=== PATIENT | female | born 1940 | race Caucasian/White ===

== ENCOUNTER 2021-11-28 10:05 | Emergency (ER) | payer MEDICARE ==
[~2021-11-28] VITALS: Ht 160 cm; Wt 61.0 kg
[2021-11-28] MEDS ORDERED: fentaNYL INJ 100 MCG/2 ML AMP IVP STA ×2 (10:13→11:28)
[2021-11-28 10:24] LABS: BASOPHILS # (AUTO) 0.1 10^3/uL (0.0-0.1); BASOPHILS % (AUTO) 1 % (0-10); EOSINOPHILS # (AUTO) 1.5 10^3/uL (0.0-0.3); EOSINOPHILS % (AUTO) 15 % (0-10); HEMATOCRIT 44 % (35-52); HEMOGLOBIN 14.6 g/dL (11.5-16.0); LYMPHOCYTES # (AUTO) 3.2 10^3/uL (1.0-4.0); LYMPHOCYTES % (AUTO) 30 % (12-44); MEAN CORPUSCULAR HEMOGLOBIN 29 pg (25-34); MEAN CORPUSCULAR HGB CONC 33 g/dL (32-36); MEAN CORPUSCULAR VOLUME 86 fL (80-99); MEAN PLATELET VOLUME 8.6 fL (9.0-12.2); MONOCYTES # (AUTO) 0.8 10^3/uL (0.0-1.0); MONOCYTES % (AUTO) 7 % (0-12); NEUTROPHILS # (AUTO) 4.8 10^3/uL (1.8-7.8); NEUTROPHILS % (AUTO) 47 % (42-75); PLATELET COUNT 284 10^3/uL (130-400); WHITE BLOOD COUNT 10.4 10^3/uL (4.3-11.0)
--- NOTE | 2021-11-28 10:26 | ED Fall/Injury ---
General Chief Complaint: Lower Extremity Stated Complaint: LT HIP PAIN Source: patient History of Present Illness Date Seen by Provider: Nov 28, 2021 Time Seen by Provider: 10:05 Initial Comments 81-year-old female presenting with complaints of left hip pain after having a fall at [facility]. She states that there is carpet on the ramp and her shoe had slipped on that when she was at [facility]. She had fallen onto her left side hitting her left hip. She states that she had also bumped her head but denies having any headache or pain. She has had no loss of consciousness, nausea, vomiting, vision change, neck pain. She has pain in the left hip and initially was not even able to straighten her leg out. EMS transported her here to the em ergency department but as a BLS crew they were not able to initiate an IV or give her any medication. Patient states that she last ate around 8 AM. She has a history of hypothyroidism and GERD. She denies any allergies to medications. She does not take any blood thinners. She follows with the [facility] clinic here in [place] with nurse practitioner Lui. She rates her pain 6 out of 10 if she is sitting still but goes higher with movement and palpation of her left hip and leg. Location Injury Occurred: [facility] Occurred: just prior to arrival Severity: moderate Injuries/Pain Location: lower extremity (left hip) Context: slipped Loss of Consciousness: no loss of consciousness Modifying Factors: Worse With Movement Associated Symptoms (Fall): No Abdominal Pain, No Chest Pain, No Confusion, No Dizziness, No Headache, No Lightheadedness, No Muscle Spasms, No Nausea/Vomiting, No Neck Pain, No Ringing in Ears, No Seizures, No Shortness of Air, No Slurred Speech, No Vision Changes Allergies and Home Medications Allergies Coded Allergies: No Known Drug Allergies (Unverified , 11/28/21) Patient Home Medication List Home Medication List Reviewed: Yes Review of Systems Review of Systems Constitutional: No chills, No dizziness, No fever Eyes: Denies Blurred Vision, Denies Vision Changes Ears, Nose, Mouth, Throat: denies ear pain, denies nose discharge, denies epistaxis Respiratory: No cough, No short of breath Cardiovascular: No chest pain Gastrointestinal: No abdominal pain, No nausea, No vomiting Genitourinary: No dysuria Musculoskeletal: see HPI, joint pain (left hip pain since fall) Skin: No change in color Psychiatric/Neurological: Denies Headache, Denies Numbness, Denies Paresthesia Past Ynldqyt-Srzrro-Udwswx Hx Patient Social History Tobacco Use?: No Use of E-Cig and/or Vaping dev: No Substance use?: No Alcohol Use?: No Past Medical History Surgery/Hospitalization HX: Hypothyroid, GERD Physical Exam Vital Signs Vital Signs - First Documented 11/28/21 10:26 Temp 36.4 Pulse 83 Resp 16 B/P (MAP) 142/81 (101) Pulse Ox 97 O2 Delivery Room Air Capillary Refill : Height, Weight, BMI Height: '" Weight: lbs. oz. kg; BMI Method: General Appearance: WD/WN, no apparent distress HEENT: PERRL/EOMI, normal ENT inspection, pharynx normal; No photophobia; other (negative Funes sign, Negative Raccoon sign, no CSF otorrhea or rhinorrhea) Neck: non-tender, full range of motion, supple, normal inspection; No tender midline Cardiovascular: normal peripheral pulses, regular rate, rhythm, systolic murmur Respiratory: chest non-tender, lungs clear, normal breath sounds, no respiratory distress, no accessory muscle use Peripheral Pulses: 2+ Dorsalis Pedis (R), 2+ Left Dors-Pedis (L) Gastrointestinal: normal bowel sounds, non tender, soft, no pulsatile mass Rectal: deferred Extremities: no pedal edema, no calf tenderness, normal capillary refill, pelvis stable, other (tender to palpation lateral left hip extending down to the femur. No obvious deformity on exam. Decreased ROM due to pain. no bruising) Neurologic/Psychiatric: safety administrator II-XII nml as tested, no motor/sensory deficits, alert, normal mood/affect, oriented x 3 Skin: normal color, warm/dry Armani Coma Score Best Eye Response: (4) Open Spontaneously Best Verbal Response: (5) Oriented Best Motor Response: (6) Obeys Commands Armani Total: 15 Progress/Results/Core Measures Results/Orders Lab Results Laboratory Tests Test 11/28/21 10:15 11/28/21 12:00 Range/Units White Blood Count 10.4 4.3-11.0 10^3/uL Red Blood Count 5.08 3.80-5.11 10^6/uL Hemoglobin 14.6 11.5-16.0 g/dL Hematocrit 44 35-52 % Mean Corpuscular Volume 86 80-99 fL Mean Corpuscular Hemoglobin 29 25-34 pg Mean Corpuscular Hemoglobin Concent 33 32-36 g/dL Red Cell Distribution Width 13.6 10.0-14.5 % Platelet Count 284 130-400 10^3/uL Mean Platelet Volume 8.6 L 9.0-12.2 fL Immature Granulocyte % (Auto) 1 % Neutrophils (%) (Auto) 47 42-75 % Lymphocytes (%) (Auto) 30 12-44 % Monocytes (%) (Auto) 7 0-12 % Eosinophils (%) (Auto) 15 H 0-10 % Basophils (%) (Auto) 1 0-10 % Neutrophils # (Auto) 4.8 1.8-7.8 10^3/uL Lymphocytes # (Auto) 3.2 1.0-4.0 10^3/uL Monocytes # (Auto) 0.8 0.0-1.0 10^3/uL Eosinophils # (Auto) 1.5 H 0.0-0.3 10^3/uL Basophils # (Auto) 0.1 0.0-0.1 10^3/uL Immature Granulocyte # (Auto) 0.1 0.0-0.1 10^3/uL Prothrombin Time 14.8 H 12.2-14.7 SEC INR Comment 1.1 0.8-1.4 Activated Partial Thromboplast Time 30 24-35 SEC Sodium Level 143 135-145 MMOL/L Potassium Level 3.6 3.6-5.0 MMOL/L Chloride Level 107 98-107 MMOL/L Carbon Dioxide Level 22 21-32 MMOL/L Anion Gap 14 5-14 MMOL/L Blood Urea Nitrogen 8 7-18 MG/DL Creatinine 1.13 0.60-1.30 MG/DL Estimat Glomerular Filtration Rate 49 BUN/Creatinine Ratio 7 Glucose Level 97 70-105 MG/DL Calcium Level 9.2 8.5-10.1 MG/DL Corrected Calcium 9.2 8.5-10.1 MG/DL Total Bilirubin 0.2 0.1-1.0 MG/DL Aspartate Amino Transf (AST/SGOT) 22 5-34 U/L Alanine Aminotransferase (ALT/SGPT) 12 0-55 U/L Alkaline Phosphatase 51 40-136 U/L Total Protein 6.7 6.4-8.2 GM/DL Albumin 4.0 3.2-4.5 GM/DL Urine Color YELLOW Urine Clarity CLOUDY Urine pH 5.5 5-9 Urine Specific [place] 1.020 1.016-1.022 Urine Protein NEGATIVE NEGATIVE Urine Glucose (UA) NEGATIVE NEGATIVE Urine Ketones NEGATIVE NEGATIVE Urine Nitrite NEGATIVE NEGATIVE Urine Bilirubin NEGATIVE NEGATIVE Urine Urobilinogen 0.2 < = 1.0 MG/DL Urine Leukocyte Esterase 1+ H NEGATIVE Urine RBC (Auto) 1+ H NEGATIVE Urine RBC 0-2 /HPF Urine WBC 50-100 H /HPF Urine Crystals NONE /LPF Urine Bacteria FEW H /HPF Urine Casts PRESENT /LPF Urine Hyaline Casts 2-5 H /LPF Urine Mucus MODERATE H /LPF Urine Culture Indicated YES My Orders Orders - JONELLE GAN MD Comprehensive Metabolic Panel (11/28/21 10:13) Ed Iv/Invasive Line Start (11/28/21 10:13) Cbc With Automated Diff (11/28/21 10:13) Protime With Inr (11/28/21 10:13) Partial Thromboplastin Time (11/28/21 10:13) Fentanyl Inj (Sublimaze Injection) (11/28/21 10:13) Pelvis With Left Hip 2-3 View (11/28/21 ) Ns Iv 1000 Ml (Sodium Chloride 0.9%) (11/28/21 11:17) Fentanyl Inj (Sublimaze Injection) (11/28/21 11:28) Napier Cath (11/28/21 11:28) Ua Culture If Indicated (11/28/21 11:28) Urine Culture (11/28/21 12:00) Morphine Injection (Morphine Injection (11/28/21 12:23) Ondansetron Injection (Zofran Injectio (11/28/21 12:23) Vital Signs/I&O 11/28/21 11/28/21 10:26 11:52 Temp 36.4 36.0 Pulse 83 81 Resp 16 16 B/P (MAP) 142/81 (101) 151/90 Pulse Ox 97 95 O2 Delivery Room Air Room Air Progress Progress Note #1: Progress Note order basic labs with coags and pelvis xray with left hip films. IV established to be able to draw blood and administer pain medicine. Give Fentanyl 50 mcg IV for pain prior to imaging. Keep NPO untilwe know if she has fracture or what may be going on with her hip and pelvis. Differential diagnosis includes left hip fracture, pubic ramus fracture, hip contusion, hip dislocation, pelvis fracture Progress Note #2: Progress Note Labs are all stable without acute significant abnormality on CBC, Chemistry or coags. Xrays show left femoral neck fracture with displacement and shortening. Counseled patient and family about the findings and results about the x-rays. Advised that she would need to see orthopedics and have surgery. Counseled that usually we would try and go to [place] or [place] for the closest orthopedic care however patient's family and patient insisted that they wanted to go to [place] and try to go to [facility] or [facility]. They were advised that they may incur a cost with the transfer to a facility beyond the closest appropriate facility with orthopedics and still insisted on going to [place]. She also was complaining of pain starting to build up again so additional dose of fentanyl 50 mcg IV was ordered. Start fluids with normal saline at 100 mils an hour to help with hydration as we are keeping her n.p.o. in case she goes to surgery today. We will place a Napier catheter as she would not be able to get up and use a commode or bathroom until after her hip is repaired. Progress Note #3: Time: 11:38 Progress Note I spoke with ROBIN Addison, at the [facility] transfer center. She connected me with orthopedic doctor on-call, Dr. Corea. I discussed the case and patient with him and reviewed she had a standing height fall with out any other injuries and has a left subcapital femoral neck fracture with displacement. He accepted her for admission to his service. With her being a standing height fall I was also connected to the emergency department doctor as patient will be transferred to the ED as a trauma. I spoke with Dr. Atkinson from the emergency department at [facility] and discussed with her the case of the patient there with a femoral neck fracture on the left side and that she had been accepted by Dr. Corea. I did reiterate to them that she denies taking any blood thinners or aspirin. Dr. Atkinson accepted the transfer to the emergency department for Dr. Corea to admit. Progress Note #4: Progress Note After patient had left the department with EMS to go to [facility] in [place] her urinalysis test showed 1+ LE with 50-100 WBC and bacteria concerning for UTI. Pt had denied any pain with urination on arrival but a napier was placed for her trauma from fall with hip fracture and in anticipation of surgery. As she had already left before I had seen this result will notify ED staff that she will need treatment for a UTI and did not receive any antibiotics here. Diagnostic Imaging Diagonstic Imaging: Xray Plain Films/CT/US/NM/MRI: pelvis, hip Comments [facility]. [place], [place] NAME: YOHANNES SHANKS [facility] REC#: [id number] PT STATUS: REG ER : 1940 PHYSICIAN: JONELLE GAN MD ADMIT DATE: 11/28/21/ER FS Draft Date of Exam:11/28/21 PELVIS WITH LEFT HIP 2-3 VIEW PELVIS WITH LEFT HIP 2-3 VIEW INDICATION: Left hip pain after fall COMPARISON: None available. TECHNIQUE: AP pelvis with AP and frog-leg lateral views of the left hip. FINDINGS: There is an acute simple transverse fracture of the femoral neck located at the subcapital position. There is mild external rotation of the femoral shaft. 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 No fracture within the obturator rings. SI joints are normal alignment. IMPRESSION: Acute subcapital fracture left femoral neck is complete and mildly displaced. Dictated on workstation # [id number] Dict: 11/28/21 1049 Trans: 11/28/21 1059 [facility] [id number] Interpreted by: TIANA LARRY MD Electronically signed by: Reviewed: Reviewed by Me Departure Impression Primary Impression: Subcapital fracture of neck of left femur Qualified Codes: S72.012A - Unspecified intracapsular fracture of left femur, initial encounter for closed fracture Additional Impressions: Fall (on)(from) incline, initial encounter Acute pain of left hip Acute cystitis without hematuria Disposition: XF SHT-TRM HOSP Condition: Stable Transfer Transfer Reason: Patient preference (pt advised of closer Orthopedic options and refused. she was made aware that she may incur some cost with transport past closest appropriate hospital with Orthopedics and still wanted to go to [place]) Time Spoke to Accepting Phy: 11:38 Transfer Progress Notes d/w Dr. Corea with orthopedics and he accepted pt for transfer for her left femoral neck fracture with displacement. I also spoke with Dr. Atkinson in the ED and she accepted pt to come to the ED as a standing height fall trauma. Transfer Facility: [facility] in [place], [place] Method of Transfer: EMS JONELLE GAN MD Nov 28, 2021 10:25
[2021-11-28 10:36] LABS: INR 1.1 (0.8-1.4); PROTHROMBIN TIME PATIENT 14.8 SEC (12.2-14.7)
[2021-11-28 10:45] LABS: BILIRUBIN,TOTAL 0.2 MG/DL (0.1-1.0); CALCIUM 9.2 MG/DL (8.5-10.1); CREATININE SERUM 1.13 MG/DL (0.60-1.30); POTASSIUM 3.6 MMOL/L (3.6-5.0); TOTAL PROTEIN 6.7 GM/DL (6.4-8.2)
--- NOTE | 2021-11-28 10:59 | Diagnostic Imaging Report ---
PELVIS WITH LEFT HIP 2-3 VIEW INDICATION: Left hip pain after fall COMPARISON: None available. TECHNIQUE: AP pelvis with AP and frog-leg lateral views of the left hip. FINDINGS: There is an acute simple transverse fracture of the femoral neck located at the subcapital position. There is mild external rotation of the femoral shaft. 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 No fracture within the obturator rings. SI joints are normal alignment. IMPRESSION: Acute subcapital fracture left femoral neck is complete and mildly displaced. Dictated by: Dictated on workstation # [id number]
[2021-11-28] MEDS ORDERED: NS IV 1000 ML 1,000 ML IV STA (11:17)
[2021-11-28 11:52] VITALS: BP 151/90
[2021-11-28 12:01] LABS: BILIRUBIN,URINE NEGATIVE (NEGATIVE); COLOR,URINE YELLOW; GLUCOSE, URINE (UA) NEGATIVE (NEGATIVE); KETONES,URINE NEGATIVE (NEGATIVE); LEUKOCYTE ESTERASE ,URINE 1+ (NEGATIVE); NITRITE,URINE NEGATIVE (NEGATIVE); PH,URINE 5.5 (5-9); PROTEIN,URINE NEGATIVE (NEGATIVE)
[2021-11-28 12:04] LABS: BACTERIA,URINE FEW /HPF; CLARITY,URINE CLOUDY; RBC,URINE 0-2 /HPF; WBC,URINE 50-100 /HPF
[2021-11-28] MEDS ORDERED: ONDANSETRON 4 MG/2 ML (SDV) Z0FRAN IVP STA (12:23)
[2021-11-28] MEDS ORDERED: morphine INJ 10 MG/ML 1ML (SYR OR VIAL) IVP STA (12:23)
== END 2021-11-28 12:35 | disposition short-term general hospital (02) ==
LOC: EDUNIT# 10:05 → ER FS 10:07
DX: S72.012A Unspecified intracapsular fracture of left femur, initial encounter for closed fracture (principal); N30.00 Acute cystitis without hematuria; M25.552 Pain in left hip; W10.2XXA Fall (on)(from) incline, initial encounter; Y92.22 Religious institution as the place of occurrence of the external cause
CPT/HCPCS: 36415; 51702; 73502; 80053; 81000; 85025; 85610; 85730; 87077; 87088; 87186

== ENCOUNTER 2021-12-02 13:04 | Emergency (ER) | payer MEDICARE ==
[~2021-12-02] VITALS: Ht 160 cm; Wt 60.8 kg
--- NOTE | 2021-12-02 13:21 | ED Cardiac General ---
History of Present Illness General Chief Complaint: Cardiac/General Problems Stated Complaint: ABD EKG Source: patient Exam Limitations: no limitations History of Present Illness Date Seen by Provider: Dec 02, 2021 Time Seen by Provider: 13:05 Initial Comments 79-year-old female with past medical history of hyperlipidemia and hypothyroidism with a recent left hip fracture that had surgery earlier on in the week coming in as a referral from home health due to concerns for abnormal heart rate. Reportedly per the patient, they were listening to her heart, and heard a murmur, and they referred her here. She states she has had a murmur for more than a decade. She denies any chest pain, shortness of breath, palpitations, leg swelling or pain, history of DVT or PE, history of heart disease, history of A. fib, or any other concerns. She states she would not have come to the ER had she not been referred, and that she feels great. She states since the surgery she has been walking, and her pain is gone. Allergies and Home Medications Allergies Coded Allergies: No Known Drug Allergies (Unverified , 11/28/21) Patient Home Medication List Home Medication List Reviewed: Yes Review of Systems Review of Systems Constitutional: No fever EENTM: No Symptoms Reported Respiratory: No Symptoms Reported Cardiovascular: Denies Palpitations, Denies Syncope Gastrointestinal: No Symptoms Reported Genitourinary: No Symptoms Reported Musculoskeletal: no symptoms reported Skin: no symptoms reported Psychiatric/Neurological: No Symptoms Reported Endocrine: No Symptoms Reported Hematologic/Lymphatic: No Symptoms Reported All Other Systems Reviewed Negative Unless Noted: Yes Past Thtuisf-Ftmgzr-Gtmgjv Hx Patient Social History Tobacco Use?: No Past Medical History Surgery/Hospitalization HX: Hypothyroid, GERD Surgeries: Yes (left hip partial replacement) Physical Exam Vital Signs Capillary Refill : Height, Weight, BMI Height: '" Weight: lbs. oz. kg; 23.00 BMI Method: General Appearance: No Apparent Distress, WD/WN HEENT: PERRL/EOMI, Normal ENT Inspection, Pharynx Normal Neck: Full Range of Motion, Normal Inspection, Non Tender, Supple Respiratory: Chest Non Tender, Lungs Clear, Normal Breath Sounds, No Accessory Muscle Use, No Respiratory Distress Cardiovascular: Regular Rate, Rhythm, No Edema, Normal Peripheral Pulses, Systolic Murmur Gastrointestinal: Normal Bowel Sounds, Non Tender, Soft; No Distended, No Guarding Extremity: Normal Capillary Refill, Normal Inspection, Normal Range of Motion, Non Tender, No Calf Tenderness, No Pedal Edema Neurologic/Psychiatric: Alert, Oriented x3, No Motor/Sensory Deficits, Normal Mood/Affect Skin: Normal Color, Warm/Dry, Other (surgical wound clean/dry/intact, no signs of infection) Lymphatic: No Adenopathy Progress/Results/Core Measures Progress Progress Note : Progress Note 81yoF with above history coming in reportedly for an EKG given they thought her heart rate sounded unusual with her home health evaluation. She does have a systolic murmur, she states that she is known about this for many years, and is asymptomatic. I will refer her to a operators school manager as an outpatient. EKG in sinus rhythm, and the patient is on the monitor and continues to be in sinus rhythm. She has had variations in her heart rate between the 80s to 90s with her respirations which is expected. Given she is asymptomatic, I am unclear what occurred earlier. I believe she is stable for discharge with outpatient follow-up. She was sent home with strict return precautions. Initial ECG Impression Date: Dec 02, 2021 Initial ECG Impression Time: 13:10 Initial ECG Rate: 84 Initial ECG Rhythm: Normal Sinus Comment Narrow QRS, normal axis, no significant ST changes or T wave abnormalities Departure Impression Primary Impression: Systolic murmur Disposition: 01 HOME, SELF-CARE Condition: Stable Departure-Patient Inst. Decision time for Depature: 13:20 Referrals: RADHA ALBERT APRN (PCP) Primary Care Physician [facility] (Family) Primary Care Physician MONA ROSE JR, MD Patient Instructions: Heart Murmurs Add. Discharge Instructions: We do hear your heart murmur, as long as you are asymptomatic without any severe chest pain or shortness of breath, it is okay to follow-up with cardiology as an outpatient. Dr. Rose does come through [facility] occasionally. If you develop any chest pain, shortness of breath, palpitations like her heart is racing, please go back to the ER. Your heart rate was in sinus rhythm in the ER and your EKG was normal. MICHELLE MCDONALD MD Dec 02, 2021 13:21
[2021-12-02 13:29] VITALS: BP 149/87
== END 2021-12-02 13:29 | disposition home or self-care (01) ==
LOC: EDUNIT# 13:04 → ER FS 13:05
DX: R01.1 Cardiac murmur, unspecified (principal)
CPT/HCPCS: 93005; 93041